=== PATIENT | female | born 1985 | race African-American/Black ===

== ENCOUNTER 2017-01-21 10:46 | Emergency (ER) | payer MEDICARE, OTHER ==
[~2017-01-21] VITALS: Ht 165.1 cm; Wt 85.1 kg
[~2017-01-21 10:46] MED LIST: ACET-704 PO; AMOX1TAB61 PO; BENZ100C PO; DEXA4TAB PO; FERR-36 PO; FLUT9.9S NS; GABA-586 PO; HYDR-2678 PO; LEVO500T59 PO; LEVO500T8 PO; LIDO20SO PO; LORA0.5T PO; MULT1CAP15 PO; NYST100054; ONDA8TAB14 PO; OXYC5TAB PO; VARE1TAB21 PO; magic mouth wash PO
[2017-01-21 11:05] VITALS: BP 112/76
[2017-01-21] MEDS ORDERED: LIDOCAINE 1% / SOD BICARB 8.4% 20 ML VIAL. IJ ONE (11:45)
[2017-01-21] MEDS ORDERED: SULF1TAB23 PO (12:08)
[2017-01-21] MEDS ORDERED: HYDR-971 PO (12:09)
--- NOTE | 2017-01-21 12:09 | PHYS DOC ---
Past Medical History Past Medical History: Cancer Additional Past Medical Histor: breast cancer with chemotherapy Past Surgical History: , Other Additional Past Surgical Histo: port insertion, L breast mastectomy and lymph nodes Alcohol Use: None Drug Use: None Adult General Chief Complaint Chief Complaint: ABSCESS HPI HPI Patient is a 31 year old female who presents with an abscess on the right inner buttock for 3 days. Patient denies any fever. Patient states the area has been draining since this morning. Review of Systems Review of Systems Constitutional: Denies fever or chills [] Musculoskeletal: Denies back pain or joint pain [] Integument: abscess on the right inner buttock Neurologic: Denies headache, focal weakness or sensory changes [] Endocrine: Denies polyuria or polydipsia [] Current Medications Current Medications Current Medications Medications (Trade) Dose Ordered Sig/Thaddeus Start Time Stop Time Status Last Admin Dose Admin Acetaminophen/ Hydrocodone Bitart (Lortab 5/325) 2 tab 1X ONCE 01/21/17 12:15 01/21/17 12:16 01/21/17 11:44 2 TAB Diphtheria/ Tetanus/Acell Pertussis (Boostrix) 0.5 ml ONCE ONCE 01/21/17 12:15 01/21/17 12:16 01/21/17 11:46 0.5 ML Lidocaine/Sodium Bicarbonate (Buffered Lidocaine 1%) 20 ml 1X ONCE 01/21/17 11:45 01/21/17 11:46 DC 01/21/17 11:47 20 ML Allergies Allergies Allergies Coded Allergies Type Severity Reaction Last Updated Verified No Known Drug Allergies 11/03/15 No Physical Exam Physical Exam Constitutional: Well developed, well nourished, no acute distress, non-toxic appearance. [] HENT: Normocephalic, atraumatic, bilateral external ears normal, oropharynx moist, no oral exudates, nose normal. [] Skin: Right inner buttock with an open wound approximately 0.5 x 0.5 cm. The area is draining yellow purulent material. There is trace erythema to the area. The area is warm and very tender to touch consistent with an abscess Back: No tenderness, no CVA tenderness. [] Extremities: No tenderness, no cyanosis, no clubbing, ROM intact, no edema. [] Neurologic: Alert and oriented X 3, normal motor function, normal sensory function, no focal deficits noted. [] Psychologic: Affect normal, judgement normal, mood normal. [] Current Patient Data Vital Signs Vital Signs Date Time Temp Pulse Resp B/P Pulse Ox O2 Delivery O2 Flow Rate FiO2 01/21/17 11:05 99.0 107 20 100 Room Air 99.0 EKG EKG [] Radiology/Procedures Radiology/Procedures Indication: abscess of the right inner thigh Procedure: The patient was positioned appropriately. Local anesthesia was not needed. Small amount of yellow bloody material was material was expressed. The drainage cavity was irrigated and covered with sterile gauze. The patients tetanus status updated as needed. The patient tolerated the procedure well. Complications: none.[] Course & Med Decision Making Course & Med Decision Making Pertinent Labs and Imaging studies reviewed. (See chart for details) Patient has an abscess of the right inner thigh which was drained in the ED as noted in procedures. Discharged on Bactrim. Tetanus was updated. Provided return precautions and discharged in stable condition. Dragon Disclaimer Dragon Disclaimer This electronic medical record was generated, in whole or in part, using a voice recognition dictation system. Departure Departure Impression: Primary Impression: Abscess of lower leg Disposition: HOME, SELF-CARE Condition: STABLE Referrals: ALTHEA BELTRE DO (PCP) Follow-up with your doctor in 1-2 weeks Patient Instructions: Abscess, [id number] Additional Instructions: You were seen for an abscess of the right inner thigh. Keep the area clean and dry. Keep it covered if it is draining. Complete your antibiotics. Follow-up with your doctor in 1- 2 weeks. Scripts Hydrocodone/Apap 5-325 (Jelm 5-325 Tablet)1 Each Tablet1-2 Tab PO Q4-6HRS #14 TAB Prov:WAGNER LUCIA APRN 01/21/17 Sulfamethoxazole/Trimethoprim (Bactrim 400-80 Mg Tablet)1 Each Tablet1 Tab PO BID #20 TAB Prov:WAGNER LUCIA APRN 01/21/17 WAGNER LUCIA APRN Jan 21, 2017 12:09
[2017-01-21] MEDS ORDERED: DIPHTH,PERTUSS(ACELL),TET TOX 0.5 ML DISP.SYRIN. VAX IM ONE (12:15)
[2017-01-21] MEDS ORDERED: HYDROcodone/APAP 5/325MG 1 TAB TABLET PO ONE (12:15)
== END 2017-01-21 12:15 | disposition home or self-care (01) ==
LOC: ER 10:46
DX: L02.415 Cutaneous abscess of right lower limb (principal)
CPT/HCPCS: 10060; 90471; 90715; 99283-25

== ENCOUNTER 2017-02-07 15:28 | Emergency (ER) | payer MEDICARE, OTHER ==
[~2017-02-07 15:28] MED LIST changes: -FERR-36 PO; +FERR325T31 PO; +HYDR-971 PO; +LEVO500T38 PO; -LEVO500T59 PO; +ONDA-36 PO; -ONDA8TAB14 PO; +SULF1TAB23 PO
[2017-02-07 15:43] VITALS: BP 121/80
[2017-02-07] MEDS: LIDOCAINE 2% VISCOUS 15 ML SOLUTION. SWSW ONE ×2 (16:28→16:37)
[2017-02-07] MEDS ORDERED: IBUPROFEN 800 MG TABLET. PO ONE (16:30)
--- NOTE | 2017-02-07 16:38 | PHYS DOC ---
Past Medical History Past Medical History: Cancer Additional Past Medical Histor: breast cancer with chemotherapy Past Surgical History: , Other Additional Past Surgical Histo: Bilateal Mastectomy Alcohol Use: None Drug Use: None Adult General Chief Complaint Chief Complaint: SORE THROAT [facility] HPI Patient is a 31 year old female presents emergency department stating that she has having a sore throat with swollen lymph nodes. She is here with her son who was sent home from school with questionable mumps. Parent believes that she may also have mumps. She denies any fever. She states that she's had a sore throat for the last few days she states that she's been taken Tylenol and ibuprofen for the pain and discomfort with no relief. She denies fevers at home. Continue with swallowing. She's had no change in her appetite. Review of Systems Review of Systems Constitutional: Denies fever or chills [] Eyes: Denies change in visual acuity, redness, or eye pain [] HENT: Denies nasal congestion C/o sore throat [] Respiratory: Denies cough or shortness of breath [] Cardiovascular: No additional information not addressed in HPI [] GI: Denies abdominal pain, nausea, vomiting, bloody stools or diarrhea [] : Denies dysuria or hematuria [] Musculoskeletal: Denies back pain or joint pain [] Integument: Denies rash or skin lesions [] Neurologic: Denies headache, focal weakness or sensory changes [] Current Medications Current Medications Current Medications Medications (Trade) Dose Ordered Sig/Thaddeus Start Time Stop Time Status Last Admin Dose Admin Ibuprofen (Motrin) 800 mg 1X ONCE 02/07/17 16:30 02/07/17 16:31 DC 02/07/17 16:28 800 MG Lidocaine HCl (Viscous Lidocaine) 15 ml 1X ONCE 02/07/17 16:45 02/07/17 16:46 Allergies Allergies Allergies Coded Allergies Type Severity Reaction Last Updated Verified No Known Drug Allergies 11/03/15 No Physical Exam Physical Exam Constitutional: Well developed, well nourished, no acute distress, non-toxic appearance. [] HENT: Normocephalic, atraumatic, bilateral external ears normal, oropharynx moist, no oral exudates, nose normal. Bilateral tympanic membranes appear to be normal. Throat appears to have enlarged tonsils with erythematous noted. No exudates noted. Noted to have slight left anterior cervical adenopathy noted. Eyes: PERRLA, EOMI, conjunctiva normal, no discharge. [] Neck: Normal range of motion, no tenderness, supple, no stridor. [] Cardiovascular:Heart rate regular rhythm, no murmur [] Lungs & Thorax: Bilateral breath sounds clear to auscultation [] Skin: Warm, dry, no erythema, no rash. [] Back: No tenderness Extremities: No tenderness, no cyanosis, no clubbing, ROM intact, no edema. [] Neurologic: Alert and oriented X 3, normal motor function, normal sensory function, no focal deficits noted. [] Psychologic: Affect normal, judgement normal, mood normal. [] Current Patient Data Vital Signs Vital Signs Date Time Temp Pulse Resp B/P Pulse Ox O2 Delivery O2 Flow Rate FiO2 02/07/17 15:43 99.3 106 16 99 Room Air 99.3 EKG EKG [] Radiology/Procedures Radiology/Procedures [] Course & Med Decision Making Course & Med Decision Making Pertinent Labs and Imaging studies reviewed. (See chart for details) Rapid strep was negative. Patient was provided with ibuprofen and viscous lidocaine in the here in the emergency department which patient refused stating that she has taken Tylenol and ibuprofen at home with no relief. She continues to state she has discussed lidocaine at home in which she has taken with no relief either. Patient will have blood obtained to rule out months. She was instructed that this results will not be back until at least Friday. Patient was recommended to use Tylenol and ibuprofen at home for fever chills generalized body aches and discomfort drink plenty of fluids to stay hydrated. She was instructed that this is a viral infection and is contagious and therefore needs to stay home. She will be discharged home in stable condition signs and symptoms to return back to emergency department as been provided. Patient agrees with discharge instructions treatment regimens and follow-up recommendations. [] Dragon Disclaimer Dragon Disclaimer This electronic medical record was generated, in whole or in part, using a voice recognition dictation system. Departure Departure Impression: Primary Impression: Pharyngitis Additional Impression: Viral infection Disposition: HOME, SELF-CARE Condition: STABLE Referrals: UNKNOWN PCP NAME (PCP) Patient Instructions: Viral Infections, [id number], Viral and Bacterial Pharyngitis, [id number] Additional Instructions: Home to rest. Tylenol or ibuprofen for fever chills generalized body aches and discomfort. No work until the results of the mumps testing have come back. This results should be back by Friday. We'll be notified if the results. Drink plenty of fluids such as water, Gatorade or propel to stay hydrated. No work until the results are back. Followup with your primary care provider in 5-7 days Return to emergency department as needed for signs and symptoms that become worse. Problem Qualifiers GENNARO GUERRA [employer] Feb 07, 2017 16:38
[2017-02-08 11:50] LABS: NEGATIVE OBC STREP NEG; POSITIVE OBC STREP POS
== END 2017-02-07 16:56 | disposition home or self-care (01) ==
LOC: ER 15:28
DX: J02.8 Acute pharyngitis due to other specified organisms (principal); B97.89 Other viral agents as the cause of diseases classified elsewhere
CPT/HCPCS: 36415; 86735; 87070; 87880; 99284

== ENCOUNTER 2017-03-19 17:36 | Emergency (ER) | payer MEDICARE, OTHER ==
[~2017-03-19 17:36] MED LIST changes: +FERR-36 PO; -FERR325T31 PO; -LEVO500T38 PO; +LEVO500T59 PO; -ONDA-36 PO; +ONDA8TAB14 PO
== END 2017-03-19 19:11 | disposition left against medical advice (07) ==
LOC: ER 17:36
DX: R07.89 Other chest pain (principal); Z53.21 Procedure and treatment not carried out due to patient leaving prior to being seen by health care provider

== ENCOUNTER → 2017-09-15 | Outpatient (CLI) | payer MEDICARE, OTHER ==
[2017-08-16 11:19] VITALS: BP 111/95
[~2017-09-15] MED LIST changes: +IOHEXOL 240 MG/ML 50ML VIAL. PO ONE; +IOHEXOL 300 MG/ML 100ML VIAL. IV ONE; -OXYC5TAB PO; +OXYC5TAB95 PO; +SULF1TAB24 PO
--- NOTE | 2017-09-15 10:37 | RAD ---
Examination: CT of the abdomen pelvis with chest abdomen and pelvis History: History of malignant neoplasm left breast, history of mastectomy Comparison: 07/23/2015 Technique: Axial CT images of the chest abdomen pelvis performed with IV contrast. Coronal and sagittal reformats are performed. PQRS Compliance Statement: One or more of the following individualized dose reduction techniques were utilized for this examination: 1. Automated exposure control 2. Adjustment of the mA and/or kV according to patient size 3. Use of iterative reconstruction technique Findings: The visualized right lobe of the thyroid gland grossly appears unremarkable. The central airways are patent. The heart size grossly appears unremarkable. No evidence of pericardial effusion. Small subcentimeter mediastinal lymph node measuring 7 mm. The central airways are patent. The bilateral lungs are clear. The visualized liver, spleen, adrenals grossly appears unremarkable. The gallbladder is mildly distended. The stomach is mildly distended. The junction of the body and tail of the pancreas appears somewhat mildly prominent probably physiological. The small bowel is nondilated. The appendix is not clearly identified due to mild motion artifact from breathing motion. There is a cystic structure identified in the left ovary measuring 2.1 cm could be a cyst or follicle. Small amount of free fluid identified in the pelvis. The urinary bladder is mildly distended.. The bilateral kidneys enhance symmetrically. Mild degenerative changes identified in the visualized thoracolumbar spine. Impression: 1. No obvious evidence of metastatic disease. 2. The junction of the body and tail of the pancreas appears somewhat mildly prominent probably physiological. 3. Small amount of free fluid identified in the pelvis, nonspecific. 4. 2.1 cm cyst is identified in the left ovary could be a left ovarian cyst or follicle.
--- NOTE | 2017-09-15 13:08 | RAD ---
Radionuclide bone scan, 09/15/2017: History: Breast cancer Whole body imaging was performed following IV injection of 25 mCi of technetium 99m MDP. No previous bone scan is available at this time for comparison purposes. Activity of the radionuclide about the skeleton major joints is symmetric. There is mildly increased activity at both shoulders compatible with arthritis. Normal renal and bladder activity is evident. IMPRESSION: No bone scan evidence of osseous metastatic disease.
== END | disposition home or self-care (01) ==
LOC: NM 07:48
PROVIDERS: ATTEND Internal Medicine Hematology & Oncology
DX: C50.412 Malignant neoplasm of upper-outer quadrant of left female breast (principal); K82.8 Other specified diseases of gallbladder; K31.89 Other diseases of stomach and duodenum; N32.89 Other specified disorders of bladder; Z17.1 Estrogen receptor negative status [ER-]; Z90.12 Acquired absence of left breast and nipple
CPT/HCPCS: 71260; 74177; 78306; 96374; A9503; Q9966; Q9967

== ENCOUNTER 2017-09-24 08:48 | Emergency (ER) | payer MEDICARE, OTHER ==
[~2017-09-24] VITALS: Ht 165.1 cm; Wt 82.6 kg
[~2017-09-24 08:48] MED LIST changes: -IOHEXOL 240 MG/ML 50ML VIAL. PO ONE; -IOHEXOL 300 MG/ML 100ML VIAL. IV ONE
[2017-09-24 08:59] VITALS: BP 127/80
[2017-09-24] MEDS ORDERED: NAPR500T4 PO (09:46)
[2017-09-24] MEDS ORDERED: HYDR-971 PO (09:46)
--- NOTE | 2017-09-24 09:47 | PHYS DOC ---
Past Medical History Past Medical History: Cancer Additional Past Medical Histor: breast cancer with chemotherapy, OVARIAN CYST Past Surgical History: , Other Additional Past Surgical Histo: Bilateral Mastectomy Alcohol Use: Occasionally Drug Use: None Adult General Chief Complaint Chief Complaint: PAIN CONTROL [facility] HPI Patient is a 31-year-old Female with history of breast cancer and treated who presents today complaining of left pelvic pain, that has been going on 3-4 days. Patient states she was seen by the oncologist who did a CT scan of her abdomen and pelvic which was noted for left ovarian cyst. She states she is going to follow-up with her own [employer] RE[employer] OPERATOR. She is in the ED today requesting some pain management. She states she has a pelvic ultrasound scheduled on September then she'll see the REEL AND REWINDER OPERATOR. Patient denies any chance she is . Denies any fever. Patient denies any chance she is . Denies any unusual vaginal discharge. Review of Systems Review of Systems Constitutional: Denies fever or chills [] Eyes: Denies change in visual acuity, redness, or eye pain [] HENT: Denies nasal congestion or sore throat [] Respiratory: Denies cough or shortness of breath [] Cardiovascular: No additional information not addressed in HPI [] GI: Left pelvic pain. Denies nausea, vomiting, bloody stools or diarrhea [] : Denies dysuria or hematuria [] Musculoskeletal: Denies back pain or joint pain [] Integument: Denies rash or skin lesions [] Neurologic: Denies headache, focal weakness or sensory changes [] All other systems were reviewed and found to be within normal limits, except as documented in this note. Allergies Allergies Allergies Coded Allergies Type Severity Reaction Last Updated Verified No Known Drug Allergies 11/03/15 No Physical Exam Physical Exam Constitutional: Well developed, well nourished, no acute distress, non-toxic appearance. [] HENT: Normocephalic, atraumatic, bilateral external ears normal, oropharynx moist, no oral exudates, nose normal. [] Eyes: PERRLA, EOMI, conjunctiva normal, no discharge. [] Neck: Normal range of motion, no tenderness, supple, no stridor. [] Cardiovascular:Heart rate regular rhythm, no murmur [] Lungs & Thorax: Bilateral breath sounds clear to auscultation [] Abdomen: Bowel sounds normal, soft, tenderness to the left pelvic region, no masses, no pulsatile masses. [] Skin: Warm, dry, no erythema, no rash. [] Back: No tenderness, no CVA tenderness. [] Extremities: No tenderness, no cyanosis, no clubbing, ROM intact, no edema. [] Neurologic: Alert and oriented X 3, normal motor function, normal sensory function, no focal deficits noted. [] Psychologic: Affect normal, judgement normal, mood normal. [] Current Patient Data Vital Signs Vital Signs Date Time Temp Pulse Resp B/P (MAP) Pulse Ox O2 Delivery O2 Flow Rate FiO2 09/24/17 08:59 98.9 86 18 100 Room Air 98.9 EKG EKG [] Radiology/Procedures Radiology/Procedures [] Course & Med Decision Making Course & Med Decision Making Pertinent Labs and Imaging studies reviewed. (See chart for details) Patient is in the ED for left pelvic pain. She was diagnosed with a left ovarian cyst a couple days ago and has an ultrasound scheduled on September 29, 2017 then after she can see her RE[employer] AND REWINDER OPERATOR. She has history of breast cancer. She was d/C with pain medicines and F/u with OBGYN. Dragon Disclaimer Dragon Disclaimer This electronic medical record was generated, in whole or in part, using a voice recognition dictation system. Departure Departure Impression: Primary Impression: Left ovarian cyst Disposition: 01 HOME, SELF-CARE Condition: STABLE Referrals: ALTHEA BELTRE DO (PCP) BHANU HU MD follow up as soon as possible Patient Instructions: Abdominal Pain Additional Instructions: You were seen for left pelvic pain due to left ovarian cyst. We highly recommend you contact your RE[employer] AND REWINDER OPERATOR and set up a follow-up appointment Slightly Do not drive or operate machinery on pain medicines Scripts Naproxen (NAPROXEN) 500 Mg Tablet 1 TAB PO BID, #30 TAB 0 Refills Prov: WAGNER LUCIA APRN 09/24/17 Hydrocodone/Apap 5-325 (NORCO 5-325 TABLET) 1 Each Tablet 1 TAB PO Q4-6HRS Y for PAIN, #20 TAB Prov: WAGNER LUCIA APRN 09/24/17 WAGNER LUCIA APRN Sep 24, 2017 09:47
== END 2017-09-24 10:01 | disposition home or self-care (01) ==
LOC: ER 08:48
DX: N83.202 Unspecified ovarian cyst, left side (principal); Z90.13 Acquired absence of bilateral breasts and nipples
CPT/HCPCS: 99283

== ENCOUNTER → 2017-09-29 | Outpatient (CLI) | payer MEDICARE, OTHER ==
[2017-09-24 08:59] VITALS: BP 127/80
[~2017-09-29] MED LIST changes: +NAPR500T4 PO
--- NOTE | 2017-09-29 16:31 | RAD ---
Ultrasound pelvis Indication: Evaluation of left ovarian cysts renal pelvis. History of breast cancer Technique: Grayscale, color Doppler and spectral waveform ultrasound images of the pelvis. Comparison: CT from 09/15/2017 Findings: The uterus measures 11.2 x 4.0 x 5.5 cm (longitudinal, AP, transverse.) The endometrium measures 2 mm and is within normal limits. The left ovary measures 2.6 x 1.7 x 3.0 cm with a 2.1 x 1.7 x 1.8 cm anechoic cyst with single thin septation with posterior acoustic enhancement and without mural nodularity. The left ovary demonstrates evidence of blood flow. The right ovary measures 1.5 x 1.4 x 2.0 cm and demonstrates evidence of blood flow. No free fluid in the pelvis. Cervix within normal limits. Impression: Simple appearing left ovarian cyst with single septation without worrisome features. Follow-up ultrasound in 6 months recommended.
== END | disposition home or self-care (01) ==
LOC: US 14:02
PROVIDERS: ATTEND Internal Medicine Hematology & Oncology
DX: N83.292 Other ovarian cyst, left side (principal); Z85.3 Personal history of malignant neoplasm of breast
CPT/HCPCS: 76830; 76856

== ENCOUNTER 2017-10-13 14:38 | Emergency (ER) | payer MEDICARE, OTHER | END 2017-10-13 15:32 | disposition home or self-care (01) | LOC: ER 14:38 | DX: L02.411 Cutaneous abscess of right axilla (principal) | CPT/HCPCS: 99283 ==

== ENCOUNTER 2017-11-18 07:59 | Emergency (ER) | payer MEDICARE, OTHER | END 2017-11-18 08:27 | disposition home or self-care (01) | LOC: ER 07:59 | DX: J02.9 Acute pharyngitis, unspecified (principal); F17.210 Nicotine dependence, cigarettes, uncomplicated | CPT/HCPCS: 99283 ==

== ENCOUNTER 2018-05-29 10:20 | Emergency (ER) | payer MEDICARE, OTHER ==
[~2018-05-29] VITALS: Ht 165.1 cm; Wt 81.6 kg
[~2018-05-29 10:20] MED LIST changes: +NAPR-514 PO; -NAPR500T4 PO; +PRED-220 PO
--- NOTE | 2018-05-29 10:41 | PHYS DOC ---
Past Medical History Past Medical History: Cancer, Other Additional Past Medical Histor: breast cancer- chemotherapy, ovarian cyst, cervical cancer Past Surgical History: , Other Additional Past Surgical Histo: bilat mastectomy Alcohol Use: None Drug Use: None Adult General Chief Complaint Chief Complaint: ABDOMINAL PAIN HPI HPI Patient is a 32 year old female with a history of breast cancer, treated, who presents today complaining of left ovarian pain. Patient rates the pain is 10 out of 10, she states the pain has been going on for a while. 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 Forrester OBGYN . She states she has an appointment with Dr. Forrester the SENIOR FINANCIAL REPORTING ANALYST in 2 weeks. She states she cannot wait until then, she states she called Dr. Forrester's office and they requested her to come to the emergency room to be evaluated. She is also complaining of cough and nasal congestion for a couple days. Denies any fever. Review of Systems Review of Systems Constitutional: Denies fever or chills [] Eyes: Denies change in visual acuity, redness, or eye pain [] HENT: Reports nasal congestion, denies sore throat [] Respiratory: Reports cough, denies shortness of breath [] Cardiovascular: No additional information not addressed in HPI [] GI: Reports left ovary pain, denies nausea, vomiting, bloody stools or diarrhea [] : Denies dysuria or hematuria [] Musculoskeletal: Denies back pain or joint pain [] Integument: Denies rash or skin lesions [] Neurologic: Denies headache, focal weakness or sensory changes [] All other systems were reviewed and found to be within normal limits, except as documented in this note. Current Medications Current Medications Current Medications Medications (Trade) Dose Ordered Sig/Thaddeus Start Time Stop Time Status Last Admin Dose Admin Oxycodone/ Acetaminophen (Percocet 5/325) 1 tab 1X ONCE 05/29/18 11:00 05/29/18 11:01 DC 05/29/18 11:02 1 TAB Allergies Allergies Allergies Coded Allergies Type Severity Reaction Last Updated Verified No Known Drug Allergies 11/03/15 No Physical Exam Physical Exam Constitutional: Well developed, well nourished, no acute distress, non-toxic appearance. [] HENT: Normocephalic, atraumatic, bilateral external ears normal, oropharynx moist, no oral exudates, nose normal. [] Eyes: PERRLA, EOMI, conjunctiva normal, no discharge. [] Neck: Normal range of motion, no tenderness, supple, no stridor. [] Cardiovascular:Heart rate regular rhythm, no murmur [] Lungs & Thorax: Bilateral breath sounds clear to auscultation [] Abdomen: Bowel sounds normal, soft, no tenderness, no masses, no pulsatile masses. [] Skin: Warm, dry, no erythema, no rash. [] Back: No tenderness, no CVA tenderness. [] Extremities: No tenderness, no cyanosis, no clubbing, ROM intact, no edema. [] Neurologic: Alert and oriented X 3, normal motor function, normal sensory function, no focal deficits noted. [] Psychologic: Affect normal, judgement normal, mood normal. [] Current Patient Data Vital Signs Vital Signs Date Time Temp Pulse Resp B/P (MAP) Pulse Ox O2 Delivery O2 Flow Rate FiO2 05/29/18 12:00 81 18 106/69 (81) 100 05/29/18 11:02 Room Air 05/29/18 10:31 98.5 98.5 Lab Values Laboratory Tests Test 05/29/18 10:56 05/29/18 10:57 Urine Collection Type Unknown Urine Color Yellow Urine Clarity Clear Urine pH 6.0 Urine Specific [place] 1.015 Urine Protein Negative mg/dL (NEG-TRACE) Urine Glucose (UA) Negative mg/dL (NEG) Urine Ketones (Stick) Negative mg/dL (NEG) Urine Blood Trace (NEG) Urine Nitrite Negative (NEG) Urine Bilirubin Negative (NEG) Urine Urobilinogen Dipstick 0.2 mg/dL (0.2 mg/dL) Urine Leukocyte Esterase Negative (NEG) Urine RBC Occ /HPF (0-2) Urine WBC 1-4 /HPF (0-4) Urine Squamous Epithelial Cells Mod /LPF Urine Bacteria Few /HPF (0-FEW) POC Urine HCG, Qualitative Hcg negative (Negative) EKG EKG [] Radiology/Procedures Radiology/Procedures []PROCEDURE: CHEST AP ONLY Single view of the chest. 05/29/2018 10:57 AM Indication: COUGH, CONGESTION Comparison: 2 views of the chest October 02, 2015 Findings: There is no focal consolidation. There is no pleural effusion or pneumothorax. The cardiomediastinal silhouette and pulmonary vasculature are within normal limits. No acute osseous abnormalities are seen. Bilateral mastectomy noted. Surgical clips scattered along the anterior chest. Impression: No evidence of acute cardiopulmonary process. Electronically signed by: Vic Tamayo MD (05/29/2018 11:05 AM) [facility] DICTATED and SIGNED BY: VIC TAMAYO MD DATE: 05/29/18 1103 Course & Med Decision Making Course & Med Decision Making Pertinent Labs and Imaging studies reviewed. (See chart for details) This is a 32-year-old female patient with history of breast cancer currently diagnosed with left ovarian cancer not started treatment too presents today complaining of left pelvic pain that has been going on for a while, has an appointment with the SENIOR FINANCIAL REPORTING ANALYST in 2 weeks. Could not wait until then. Also complaining of cough and nasal congestion. Chest x-ray interpreted by radiologist is negative for any acute findings, UA is negative. Patient's cough and congestion is likely an upper respiratory infection. Considering her pain, cough, and history of breast cancer and currently ovarian cancer, she was discharged with Tussionex cover her for pain and the cough. I recommended she follows up with the SENIOR FINANCIAL REPORTING ANALYST or Dr. Peterson in the next 7 days. She was provided return precautions and discharged in stable condition. Dragon Disclaimer Dragon Disclaimer This electronic medical record was generated, in whole or in part, using a voice recognition dictation system. Departure Departure Impression: Primary Impression: Upper respiratory infection Additional Impressions: Cough Pelvic pain Disposition: 01 HOME, SELF-CARE Condition: STABLE Referrals: ALTHEA BELTRE DO (PCP) follow up with your primary care doctor, Dr. Forrester and Dr. Peterson as soon as you can Patient Instructions: Cough, Adult, Pelvic Pain, Female, Upper Respiratory Infection, Adult, [id number] Additional Instructions: You were evaluated in the emergency room for left ovarian pain/pelvic pain, we highly recommend you continue following up with Dr. Forrester as well as Dr. Peterson. Your chest x-ray was negative, your cough and congestion are probably upper respiratory infection which is usually viral. We wrote you some medicines to help you with the cough as well as pain. Scripts Hydrocodone/Apap 5-325 (NORCO 5-325 TABLET) 1 Each Tablet 1 TAB PO Q6HRS, #3 TAB Prov: MUTUNGA,WAGNER MEDICAL SAFETY DIRECTOR 05/29/18 Hydrocodone/Chlorphen Polis (HYDROCODONE-CHLORPHENIRAM SUSP) 5 Ml Jossy.er.12h 5 ML PO PRN Q12HR PRN for COUGH, #80 ML 0 Refills Prov: WAGNER LUCIA APRN 05/29/18 Problem Qualifiers Primary Impression: Upper respiratory infection URI type: unspecified URI Qualified Codes: J06.9 - Acute upper respiratory infection, unspecified WAGNER LUCIA APRN May 29, 2018 10:41
[2018-05-29] MEDS ORDERED: oxyCODONE/APAP 5/325 1 TAB TABLET PO ONE (11:00)
--- NOTE | 2018-05-29 11:09 | RAD ---
Single view of the chest. 05/29/2018 10:57 AM Indication: COUGH, CONGESTION Comparison: 2 views of the chest October 02, 2015 Findings: There is no focal consolidation. There is no pleural effusion or pneumothorax. The cardiomediastinal silhouette and pulmonary vasculature are within normal limits. No acute osseous abnormalities are seen. Bilateral mastectomy noted. Surgical clips scattered along the anterior chest. Impression: No evidence of acute cardiopulmonary process. Electronically signed by: Vic Fox MD (05/29/2018 11:05 AM) [facility]
[2018-05-29 11:34] LABS: BILIRUBIN,URINE NEGATIVE (NEG); CLARITY,URINE CLEAR; COLOR,URINE YELLOW; NITRITE,URINE NEGATIVE (NEG); PROTEIN,URINE NEGATIVE (NEG-TRACE); RBC,URINE OCC /HPF (0-2); UROBILINOGEN,URINE 0.2 mg/dL (0.2 mg/dL)
[2018-05-29 11:35] LABS: BACTERIA,URINE FEW /HPF (0-FEW); SQUAMOUS EPITHELIAL CELL,UR MOD /LPF
[2018-05-29] MEDS ORDERED: HYDR5SUS PO (11:47)
[2018-05-29 12:00] VITALS: BP 106/69
[2018-05-29] MEDS ORDERED: HYDR-971 PO (12:46)
== END 2018-05-29 12:07 | disposition home or self-care (01) ==
LOC: ER 10:20
DX: J06.9 Acute upper respiratory infection, unspecified (principal); R10.2 Pelvic and perineal pain; C56.2 Malignant neoplasm of left ovary; Z90.13 Acquired absence of bilateral breasts and nipples
CPT/HCPCS: 71045; 81001; 81025; 99285

== ENCOUNTER 2018-07-06 10:48 | Emergency (ER) | payer MEDICARE, OTHER ==
[~2018-07-06] VITALS: Ht 165.1 cm; Wt 80.3 kg
[~2018-07-06 10:48] MED LIST changes: +HYDR5SUS PO
[2018-07-06 10:59] VITALS: BP 166/80
[2018-07-06] MEDS ORDERED: MORPHINE SULFATE 10 MG/ML VIAL. IM ONE (11:15)
[2018-07-06 11:19] LABS: BILIRUBIN,URINE NEGATIVE (NEG); CLARITY,URINE CLOUDY; COLOR,URINE AMBER; NITRITE,URINE NEGATIVE (NEG); PH,URINE 6.5; PROTEIN,URINE NEGATIVE (NEG-TRACE)
[2018-07-06 11:24] LABS: SQUAMOUS EPITHELIAL CELL,UR MANY /LPF
[2018-07-06 11:25] LABS: BACTERIA,URINE FEW /HPF (0-FEW); RBC,URINE 0 /HPF (0-2)
[2018-07-06] MEDS ORDERED: HYDROcodone/APAP 5/325MG 1 TAB TABLET PO ONE (11:45)
[2018-07-06] MEDS ORDERED: HYDR-971 PO (11:54)
--- NOTE | 2018-07-06 11:54 | PHYS DOC ---
Past Medical History Past Medical History: Cancer, Other Additional Past Medical Histor: breast cancer- chemotherapy, ovarian cyst, cervical cancer, Past Surgical History: , Other Additional Past Surgical Histo: bilat mastectomy Alcohol Use: None Drug Use: None Adult General Chief Complaint Chief Complaint: ABDOMINAL PAIN HPI HPI Patient is a 32 year old female with history of breast cancer and treated who presents today complaining of chronic 9 out of 10 left pelvic pain due to an ovarian cyst that she's had for a while. Patient states she is scheduled to have surgery to remove the cyst and ovary in 2 weeks. She states she is not able to see her MANAGER INTENSIVE CARE until her surgery is done in 2 weeks. She states she currently would like something to help with the pain. She has tried over-the- counter pain relievers with no relief. MANAGER INTENSIVE CARE Dr. Gonzalez was Review of Systems Review of Systems Constitutional: Denies fever or chills [] Eyes: Denies change in visual acuity, redness, or eye pain [] HENT: Denies nasal congestion or sore throat [] Respiratory: Denies cough or shortness of breath [] Cardiovascular: No additional information not addressed in HPI [] GI: Reports left pelvic pain-chronic, denies nausea, vomiting, bloody stools or diarrhea [] : Denies dysuria or hematuria [] Musculoskeletal: Denies back pain or joint pain [] Integument: Denies rash or skin lesions [] Neurologic: Denies headache, focal weakness or sensory changes [] All other systems were reviewed and found to be within normal limits, except as documented in this note. Current Medications Current Medications Current Medications Medications (Trade) Dose Ordered Sig/Thaddeus Start Time Stop Time Status Last Admin Dose Admin Acetaminophen/ Hydrocodone Bitart (Lortab 5/325) 2 tab 1X ONCE 07/06/18 11:45 07/06/18 11:46 DC 07/06/18 11:59 2 TAB Morphine Sulfate (Morphine Sulfate) 5 mg 1X ONCE 07/06/18 11:15 07/06/18 11:40 DC Allergies Allergies Allergies Coded Allergies Type Severity Reaction Last Updated Verified No Known Drug Allergies 11/03/15 No Physical Exam Physical Exam Constitutional: Well developed, well nourished, no acute distress, non-toxic appearance. [] HENT: Normocephalic, atraumatic, bilateral external ears normal, oropharynx moist, no oral exudates, nose normal. [] Eyes: PERRLA, EOMI, conjunctiva normal, no discharge. [] Neck: Normal range of motion, no tenderness, supple, no stridor. [] Cardiovascular:Heart rate regular rhythm, no murmur [] Lungs & Thorax: Bilateral breath sounds clear to auscultation [] Abdomen: Bowel sounds normal, soft, no tenderness, no masses, no pulsatile masses. [] Skin: Warm, dry, no erythema, no rash. [] Back: No tenderness, no CVA tenderness. [] Extremities: No tenderness, no cyanosis, no clubbing, ROM intact, no edema. [] Neurologic: Alert and oriented X 3, normal motor function, normal sensory function, no focal deficits noted. [] Psychologic: Affect normal, judgement normal, mood normal. [] Current Patient Data Vital Signs Vital Signs Date Time Temp Pulse Resp B/P (MAP) Pulse Ox O2 Delivery O2 Flow Rate FiO2 07/06/18 11:59 18 Room Air 07/06/18 10:59 99.0 85 166/80 (108) 100 99.0 Lab Values Laboratory Tests Test 07/06/18 10:55 07/06/18 11:11 Urine Collection Type Unknown Urine Color Mitzy Urine Clarity Cloudy Urine pH 6.5 Urine Specific [place] >=1.030 Urine Protein Negative mg/dL (NEG-TRACE) Urine Glucose (UA) Negative mg/dL (NEG) Urine Ketones (Stick) Trace mg/dL (NEG) Urine Blood Negative (NEG) Urine Nitrite Negative (NEG) Urine Bilirubin Negative (NEG) Urine Urobilinogen Dipstick 1.0 mg/dL (0.2 mg/dL) Urine Leukocyte Esterase Negative (NEG) Urine RBC 0 /HPF (0-2) Urine WBC 1-4 /HPF (0-4) Urine Squamous Epithelial Cells Many /LPF Urine Bacteria Few /HPF (0-FEW) Urine Mucus Marked /LPF POC Urine HCG, Qualitative Hcg negative (Negative) EKG EKG [] Radiology/Procedures Radiology/Procedures [] Course & Med Decision Making Course & Med Decision Making Pertinent Labs and Imaging studies reviewed. (See chart for details) This is a 32-year-old female patient presenting to the ED today with chronic pelvic pain from an ovarian cyst, per her statement she is scheduled to have oophorectomy in 2 weeks. She states she is not able to see her MANAGER INTENSIVE CARE until then. We will send her home with 10 tablets of [place] to use wisely for the next 2 weeks. UA is negative. Staff Physician Addendum: I was working in the ER during the course of this patient's visit. I was available for consultation as needed, but I was not directly involved in the care of this patient. Dragon Disclaimer Dragon Disclaimer This electronic medical record was generated, in whole or in part, using a voice recognition dictation system. Departure Departure Impression: Primary Impression: Chronic pelvic pain in female Disposition: HOME, SELF-CARE Condition: STABLE Referrals: ALTHEA BELTRE DO (PCP) BHANU HU MD follow up as soon as you can Patient Instructions: Pelvic Pain, Female, [id number] Additional Instructions: You were seen for chronic left pelvic pain. Please follow-up with your MANAGER INTENSIVE CARE as soon as you can. Scripts Hydrocodone/Apap 5-325 (NORCO 5-325 TABLET) 1 Each Tablet 1 TAB PO Q6HRS, #10 TAB Prov: WAGNER LUCIA APRN 07/06/18 WAGNER LUCIA APRN Jul 06, 2018 11:54 ZULEYKA ONOFRE MD Jul 06, 2018 16:12
== END 2018-07-06 12:06 | disposition home or self-care (01) ==
LOC: ER 10:48
DX: G89.29 Other chronic pain (principal); R10.2 Pelvic and perineal pain
CPT/HCPCS: 81001; 81025; 99283

== ENCOUNTER 2019-04-20 13:53 | Emergency (ER) | payer OTHER ==
[~2019-04-20] VITALS: Ht 165.1 cm; Wt 79.4 kg
[~2019-04-20 13:53] MED LIST changes: -GABA-586 PO; +GABA300C18 PO; +HYDR-3164 PO; -HYDR-971 PO; +OXYC5TAB4 PO; -OXYC5TAB95 PO
[2019-04-20 14:20] VITALS: BP 126/80
--- NOTE | 2019-04-20 15:03 | PHYS DOC ---
Past Medical History Past Medical History: Cancer, Depression, Other Additional Past Medical Histor: breast cancer- chemotherapy, ovarian cyst, cervical cancer, Past Surgical History: , Other Additional Past Surgical Histo: bilat mastectomy Alcohol Use: None Drug Use: None Adult General Chief Complaint Chief Complaint: MULTIPLE COMPLAINTS [facility] HPI Patient is a 33 year old AA female who presents to the ER with complaints of left breast lump that is painful for the last 2 weeks and pelvic pain for over 6 months. She has a hx of breast cancer in 2016 and has had a bilateral mastectomy. Her oncologist is Dr. Peterson and her OBGyn is Dr. Lisa Forrester. Pt states she was supposed to have a scan of her abdomen done 6 months ago but never had it completed because she didn't have time. She denies any increase in pelvic discomfort, irregular vaginal discharge, fever, nausea, vomiting, diarrhea, abdominal pain, constipation, shortness of breath, cough, dysuria, or back pain. She is requesting pain medication and rates her pain a 10/10 on the pain scale, she denies any alleviating factors. Review of Systems Review of Systems Constitutional: Denies fever or chills [] Eyes: Denies change in visual acuity, redness, or eye pain [] HENT: Denies nasal congestion or sore throat [] Respiratory: Denies cough or shortness of breath; reports tender lump on left chest without erythema, warmth, or drainage x2 weeks [] Cardiovascular: No additional information not addressed in HPI [] GI: Denies abdominal pain, nausea, vomiting, bloody stools or diarrhea; reports chronic pelvic pain [] : Denies dysuria or hematuria see HPI[] Musculoskeletal: Denies back pain or joint pain [] Integument: Denies rash or skin lesions [] Neurologic: Denies headache, focal weakness or sensory changes [] Complete systems were reviewed and found to be within normal limits, except as documented in this note. Current Medications Current Medications Current Medications Medications (Trade) Dose Ordered Sig/Thaddeus Start Time Stop Time Status Last Admin Dose Admin Acetaminophen/ Hydrocodone Bitart (Lortab 5/325) 1 tab 1X ONCE 04/20/19 15:30 04/20/19 15:31 DC Allergies Allergies Allergies Coded Allergies Type Severity Reaction Last Updated Verified No Known Drug Allergies 11/03/15 No Physical Exam Physical Exam Constitutional: Well developed, well nourished, no acute distress, non-toxic appearance, drug seeking behavior. [] HENT: Normocephalic, atraumatic, bilateral external ears normal, nose normal. [] Eyes: PERRLA, conjunctiva normal, no discharge. [] Neck: Normal range of motion, no stridor. [] Cardiovascular:Heart rate regular rhythm, Lungs & Thorax: Bilateral breath sounds clear to auscultation; palpable, smooth, round, moveable, tender area to left chest; bilateral post-operative mastectomy changes [] Abdomen: Bowel sounds normal, soft, no tenderness, no masses, no pulsatile masses. [] Skin: Warm, dry, no erythema, no rash. [] Extremities: No cyanosis,ROM intact, no edema. [] Neurologic: Alert and oriented X 3, no focal deficits noted. [] Psychologic: Affect normal, judgement normal, mood normal. [] Current Patient Data Vital Signs Vital Signs Date Time Temp Pulse Resp B/P (MAP) Pulse Ox O2 Delivery O2 Flow Rate FiO2 04/20/19 14:20 98.4 92 14 126/80 (95) 100 Room Air 98.4 Lab Values Laboratory Tests Test 04/20/19 15:20 Urine Color Yellow Urine Clarity Clear Urine pH 5.5 Urine Specific [place] 1.025 Urine Protein Negative mg/dL (NEG-TRACE) Urine Glucose (UA) Negative mg/dL (NEG) Urine Ketones (Stick) Negative mg/dL (NEG) Urine Blood Trace (NEG) Urine Nitrite Positive (NEG) Urine Bilirubin Negative (NEG) Urine Urobilinogen Dipstick 0.2 mg/dL (0.2 mg/dL) Urine Leukocyte Esterase Small (NEG) Urine RBC Occ /HPF (0-2) Urine WBC 1-4 /HPF (0-4) Urine Squamous Epithelial Cells Occ /LPF Urine Bacteria Many /HPF (0-FEW) EKG EKG [] Radiology/Procedures Radiology/Procedures [] Course & Med Decision Making Course & Med Decision Making Pertinent Labs and Imaging studies reviewed. (See chart for details) Dx: AMA, drug seeking behavior Discussed need for follow up with Dr. Peterson oncologist and Dr. Forrester judicial reporter for further evaluation of chronic pelvic pain and tender lump in chest. Advised pt that one hydrocodone would be ordered in the ER. Will check urine for UTI and . Pt agreeable with plan. Jelena RN notified this provider that patient chose to sign out AMA before UA resulted and any pain medication was given. [] Dragon Disclaimer Dragon Disclaimer This electronic medical record was generated, in whole or in part, using a voice recognition dictation system. Departure Departure Impression: Primary Impression: Drug-seeking behavior Additional Impression: Left against medical advice Disposition: 07 AGAINST MEDICAL ADVICE Condition: STABLE Referrals: ALTHEA BELTRE DO (PCP) Problem Qualifiers JAZMIN JIANG MOTOR AND GENERATOR BRUSH CUTTER Apr 20, 2019 15:03
[2019-04-20] MEDS ORDERED: HYDROcodone/APAP 5/325MG 1 TAB TABLET PO ONE (15:30)
[2019-04-20 15:46] LABS: BILIRUBIN,URINE NEGATIVE (NEG); CLARITY,URINE CLEAR; COLOR,URINE YELLOW; NITRITE,URINE POSITIVE (NEG); PH,URINE 5.5; PROTEIN,URINE NEGATIVE (NEG-TRACE); UROBILINOGEN,URINE 0.2 mg/dL (0.2 mg/dL)
[2019-04-20 16:50] LABS: BACTERIA,URINE MANY /HPF (0-FEW); RBC,URINE OCC /HPF (0-2); SQUAMOUS EPITHELIAL CELL,UR OCC /LPF
== END 2019-04-20 15:30 | disposition left against medical advice (07) ==
LOC: ER 13:53
DX: Z76.5 Malingerer [conscious simulation] (principal); N63.20 Unspecified lump in the left breast, unspecified quadrant; G89.29 Other chronic pain; R10.2 Pelvic and perineal pain; Z90.13 Acquired absence of bilateral breasts and nipples; Z85.43 Personal history of malignant neoplasm of ovary; Z85.89 Personal history of malignant neoplasm of other organs and systems
CPT/HCPCS: 81001; 87086; 99284

== ENCOUNTER → 2019-05-06 | Outpatient (CLI) | payer OTHER ==
[2019-04-20 14:20] VITALS: BP 126/80
[~2019-05-06] MED LIST changes: +CONTRAST GIVEN. MC PRN; +IOHEXOL 240 MG/ML 50ML VIAL. PO ONE; +IOHEXOL 300 MG/ML 100ML VIAL. IV ONE
--- NOTE | 2019-05-06 10:59 | RAD ---
EXAM: CT Chest, Abdomen and Pelvis with IV contrast CLINICAL HISTORY: Left breast cancer COMPARISON: None. TECHNIQUE: Helical CT of the chest, abdomen and pelvis was performed following the administration of intravenous contrast. Axial, coronal and sagittal reformatted images were generated. ---PQRS compliance statement - One or more of the following individualized dose reduction techniques were utilized for this study: 1. Automated exposure control 2. Adjustment of the mA and/or kV according to patient size 3. Use of iterative reconstruction technique--- FINDINGS: Chest: Heart is not enlarged. No pericardial effusion. No mediastinal or hilar lymphadenopathy by size criteria. No axillary lymphadenopathy. Bilateral anterior chest wall and axillary surgical clips are seen from prior meniscectomy. No suspicious lung nodule or mass is seen. No lobar consolidation. No pleural effusion or pneumothorax. Abdomen and Pelvis: No focal liver lesion. Spleen is unremarkable. Adrenal glands are normal. Pancreas is unremarkable. Mild gallbladder wall thickening and edema with internal punctate radiodense foci with trace suspected pericholecystic fluid may be seen with cholecystitis. Symmetric nephrograms. Subcentimeter hypodense right upper pole renal lesion is too small to accurately characterize. No hydronephrosis or hydroureter. Bladder is unremarkable. Uterus and adnexa are unremarkable. No abdominal or pelvic lymphadenopathy. No abdominal or pelvic ascites. Visualized osseous structures are unremarkable. Bones: Osseous structures are grossly stable. IMPRESSION: 1. No thoracic, abdominal or pelvic lymphadenopathy. No evidence for metastatic disease. 2. Gallstones and sludge are seen within the gallbladder with wall thickening and trace pericholecystic fluid which may be seen with cholecystitis. This can be correlated with patient's symptoms and lab values and if further imaging is required, ultrasound or HIDA scan would provide additional details. Electronically signed by: Xavi May MD (05/06/2019 10:56 AM) [facility]
--- NOTE | 2019-05-06 11:27 | RAD ---
CLINICAL HISTORY: Breast cancer COMPARISON: No prior study is available for comparison. TECHNIQUE: Radiopharmaceutical Dose: 25.6 mCi Tc99m MDP intravenous Approximately 2-4 hours after the administration of tracer, the patient was instructed to void and whole body images were obtained in the anterior and posterior projections. FINDINGS: Physiologic activity is seen within the skeletal structures and renal collecting systems. Focus of uptake within the left mandible favored to be represent dental disease. No other suspicious focus of increased radiotracer uptake. IMPRESSION: 1. Small focus of radiotracer uptake within the left mandible is favored to be from dental disease otherwise no focus of suspicious increased radiotracer uptake Radiation Dosimetry: The radiopharmaceutical used for this exam delivers approximately 0.21 mSv/mCi (21 mRem/mCi) Source: RADIATION DOSE ESTIMATES TO ADULTS AND CHILDREN, [place]; Effective dose RADAR Electronically signed by: Xavi May MD (05/06/2019 11:24 AM) [facility]
--- NOTE | 2019-05-06 11:27 | RAD ---
CLINICAL HISTORY: Breast cancer COMPARISON: No prior study is available for comparison. TECHNIQUE: Radiopharmaceutical Dose: 25.6 mCi Tc99m MDP intravenous Approximately 2-4 hours after the administration of tracer, the patient was instructed to void and whole body images were obtained in the anterior and posterior projections. FINDINGS: Physiologic activity is seen within the skeletal structures and renal collecting systems. Focus of uptake within the left mandible favored to be represent dental disease. No other suspicious focus of increased radiotracer uptake. IMPRESSION: 1. Small focus of radiotracer uptake within the left mandible is favored to be from dental disease otherwise no focus of suspicious increased radiotracer uptake Radiation Dosimetry: The radiopharmaceutical used for this exam delivers approximately 0.21 mSv/mCi (21 mRem/mCi) Source: RADIATION DOSE ESTIMATES TO ADULTS AND CHILDREN, [place]; Effective dose RADAR Electronically signed by: Xavi May MD (05/06/2019 11:24 AM) [facility]
== END | disposition home or self-care (01) ==
LOC: NM 07:34
PROVIDERS: ATTEND Internal Medicine Hematology & Oncology
DX: K80.20 Calculus of gallbladder without cholecystitis without obstruction (principal); K04.99 Other diseases of pulp and periapical tissues; Z17.1 Estrogen receptor negative status [ER-]; Z85.3 Personal history of malignant neoplasm of breast
CPT/HCPCS: 71260; 74177; 78306; A9503; Q9967

== ENCOUNTER → 2019-05-27 | Outpatient (CLI) | payer OTHER ==
[~2019-05-27] MED LIST changes: -CONTRAST GIVEN. MC PRN; -IOHEXOL 240 MG/ML 50ML VIAL. PO ONE; -IOHEXOL 300 MG/ML 100ML VIAL. IV ONE
--- NOTE | 2019-05-27 16:44 | RAD ---
EXAM: Ultrasound left chest wall DATE: 05/27/2019 4:28 PM INDICATION: Left chest wall pain, history of breast cancer COMPARISON: No Prior Technique: Grayscale and color Doppler sonographic evaluation was performed in the region of the left chest wall at the site of pain/palpable abnormality. FINDINGS/ IMPRESSION: 1. No discrete soft tissue mass is identified. 2. Normal appearing subcutaneous tissues and subjacent musculature is identified. Electronically signed by: Xavi May MD (05/27/2019 4:42 PM) [facility]
== END | disposition home or self-care (01) ==
LOC: US 16:07
PROVIDERS: ATTEND Internal Medicine Hematology & Oncology
DX: R07.89 Other chest pain (principal); Z85.3 Personal history of malignant neoplasm of breast
CPT/HCPCS: 76604

== ENCOUNTER 2020-11-28 12:38 | Emergency (ER) | payer MEDICARE, OTHER ==
[~2020-11-28 12:38] MED LIST changes: -ONDA8TAB14 PO; +ONDA8TAB17 PO
[2020-11-28] MEDS ORDERED: KETOROLAC 60 MG/2 ML VIAL. ONE (15:42)
[2020-11-28] MEDS ORDERED: KETOROLAC 60 MG/2 ML VIAL. INJ ONE (16:15)
--- NOTE | 2020-11-28 16:48 | PHYS DOC ---
Past Medical History Past Medical History: Cancer, Depression, Other Additional Past Medical Histor: breast cancer- chemotherapy, ovarian cyst, cervical cancer, Past Surgical History: , Other Additional Past Surgical Histo: bilat mastectomy Smoking Status: Current Some Day Smoker Alcohol Use: None Drug Use: None General Adult HPI: HPI: Patient is a 35 year old female presents to the emergency department with complaints of dental pain for the past 3 days. Patient states that the gums along both sides of her lower teeth hurt along with dental pain of all of her molars on the lower side. Patient states that she called to make an appointment to see her dentist today however they could not get her in. Patient states that she will make an appointment to see them later this week at [facility]. Patient denies allergies to medications. States she takes fluoxetine for depression, gabapentin for nerve pains, states that she had breast cancer and finished her chemotherapy 7 months ago. Patient states she took Tylenol and Advil at home for the pain and it has not been working, patient rates her pain a 10/10 on a 1-10 pain scale. Patient denies any other physical complaints or physical concerns. Review of Systems: Review of Systems: 14 body systems of review of systems have been reviewed. See HPI for pertinent positives and negative responses, otherwise all other systems are negative, nonpertinent or noncontributory. Heart Score: Risk Factors: Risk Factors: DM, Current or recent (<one month) smoker, HTN, HLP, family history of CAD, obesity. Risk Scores: Score 0 - 3: 2.5% MACE over next 6 weeks - Discharge Home Score 4 - 6: 20.3% MACE over next 6 weeks - Admit for Clinical Observation Score 7 - 10: 72.7% MACE over next 6 weeks - Early Invasive Strategies Current Medications: Current Medications Medications (Trade) Dose Ordered Sig/Thaddeus Start Time Stop Time Status Last Admin Dose Admin Ketorolac Tromethamine (Toradol Im) 60 mg 1X ONCE 11/28/20 16:15 11/28/20 16:16 DC Allergies: Allergies: Allergies Coded Allergies Type Severity Reaction Last Updated Verified No Known Drug Allergies 11/03/15 No Physical Exam: PE: Constitutional: Well developed, well nourished, no acute distress, non-toxic appearance. HENT: Normocephalic, atraumatic, bilateral external ears normal, oropharynx moist, no oral exudates, nose normal. Marked dental caries, gingivitis, multiple broken teeth. No dental abscess nor drainage appreciated. Eyes: PERRLA, EOMI, conjunctiva normal, no discharge. Neck: Normal range of motion, no tenderness, supple, no stridor. Cardiovascular:Heart rate regular rhythm, no murmur Lungs & Thorax: Bilateral breath sounds clear to auscultation Abdomen: Bowel sounds normal, soft, no tenderness, no masses, no pulsatile masses. Skin: Warm, dry, no erythema, no rash. Back: No tenderness, no CVA tenderness. Extremities: No tenderness, no cyanosis, no clubbing, ROM intact, no edema. Neurologic: Alert and oriented X 3, normal motor function, normal sensory function, no focal deficits noted. Psychologic: Affect normal, judgement normal, mood normal. EKG: EKG: [] Radiology/Procedures: Radiology/Procedures: [] Course & Med Decision Making: Course & Med Decision Making Pertinent Labs and Imaging studies reviewed. (See chart for details) 35-year-old female, vital signs reviewed, presents to the emergency department for dental pain. Physical examination showed marked dental caries with various stages of tooth decay. There were no dental abscess, no drainage, no deep tissue infection concerns, no loss of sensation to the face or tongue. Patient was seen during downtime, prescriptions were handwritten and given to patient, will treat with Peridex mouthwash swish and spit, 600 mg ibuprofen, 875 Augmentin twice daily x10 days, 12 each Range 5/325 mg. Patient states she will follow-up with her primary care dentist at [facility] dental office this week. Patient was discharged home without incident, gave verbal understanding of home care instructions, prescription medication use, return to ER precautions or concerns, follow-up with dentist. Dennis Disclaimer: Dennis Disclaimer: This electronic medical record was generated, in whole or in part, using a voice recognition dictation system. Departure Departure Impression: Primary Impression: Dentalgia Additional Impressions: Gingivitis Dental caries Disposition: 01 DC HOME SELF CARE/HOMELESS Condition: GOOD Referrals: ALTHEA BELTRE DO (PCP) Patient Instructions: Dental Caries Additional Instructions: Please take prescriptions as directed, follow-up with your dentist this week, return to the emergency department for worsening symptoms or other concerns. EMERGENCY DEPARTMENT GENERAL DISCHARGE INSTRUCTIONS Thank you for coming to [facility] Emergency Department (ED) today and trusting us with you care. We trust that you had a positive experience in our Emergency Department. If you wish to speak to the department management, you may call the Director at [phone]. YOUR FOLLOW UP INSTRUCTIONS ARE FOLLOWS: 1. Do you have a private Doctor? If you do not have a private doctor, please ask for a resource list of physicians or clinics that may be able to assist you with follow up care. 2. The Emergency Physicain has interpreted your x-rays. The X-Ray specialist will also review them. If there is a change in the findings, you will be notified in 48 hours when at all possible. 3. A lab test or culture has been done, your results will be reviewed and you will be notified if you need a change in treatment. ADDITIONAL INSTRUCTIONS AND INFORMATION: 1. Your care today has been supervised by a physician who is specially trained in emergency care. Many problems require more than one evaluation for a complete diagnosis and treatment. We recommend that you schedule your follow up appointment as recommended to ensure complete treatment of you illness or injury. If you are unable to obtain follow up care and continue to have a problem, or if your condition worsens, we recommend that you return to the ED. 2. We are not able to safely determine your condition over the phone nor are we able to give sound medical advice over the phone. For these safety reasons, if you call for medical advice we will ask you to come to the ED for further evaluation. 3. If you have any questions regarding these discharge instructions please call the ED at [phone]. SAFETY INFORMATION: In the interest of safety, wellness, and injury prevention; we encourage you to wear your sealbelt, if you smoke; quite smoking, and we encourage family to use a protective helmet for bicycling and other sporting events that present an increased risk for head injury. IF YOUR SYMPTOMS WORSEN OR NEW SYMPTOMS DEVELOP, OR YOU HAVE CONCERNS ABOUT YOUR CONDITION; OR IF YOUR CONDITION WORSENS WHILE YOU ARE WAITING FOR YOUR FOLLOW UP APPOINTMENT; EITHER CONTACT YOUR PRIMARY CARE DOCTOR, THE PHYSICIAN WHOSE NAME AND NUMBER YOU WERE GIVEN, OR RETURN TO THE ED IMMEDIATELY. YEMI GORDON APRN Nov 28, 2020 16:48
== END 2020-11-28 15:51 | disposition home or self-care (01) ==
LOC: ER 12:38
DX: K05.10 Chronic gingivitis, plaque induced (principal); K02.9 Dental caries, unspecified; K08.89 Other specified disorders of teeth and supporting structures; F32.9 Major depressive disorder, single episode, unspecified; Z85.3 Personal history of malignant neoplasm of breast; Z90.89 Acquired absence of other organs; Z98.890 Other specified postprocedural states; Z87.891 Personal history of nicotine dependence
CPT/HCPCS: 99283

== ENCOUNTER 2021-05-25 09:20 | Emergency (ER) | payer MEDICARE, OTHER | END 2021-05-25 09:21 | disposition left against medical advice (07) | LOC: ER 09:20 | DX: Z53.21 Procedure and treatment not carried out due to patient leaving prior to being seen by health care provider (principal) ==

== ENCOUNTER 2021-11-01 07:44 | Emergency (ER) | payer MEDICARE, OTHER ==
[~2021-11-01] VITALS: Ht 165.1 cm; Wt 77.5 kg
[~2021-11-01 07:44] MED LIST changes: -LEVO500T8 PO; +LEVO500T9 PO; +ONDA-85 PO; -ONDA8TAB17 PO
[2021-11-01] MEDS ORDERED: KETOROLAC 60 MG/2 ML VIAL. IM ONE (08:00)
[2021-11-01] MEDS ORDERED: PENICILLIN V K 250 MG TABLET. PO ONE (08:00)
[2021-11-01] MEDS ORDERED: KETOROLAC 60 MG/2 ML VIAL. ONE (08:01)
[2021-11-01] MEDS ORDERED: DICL50TA2 PO (08:04)
[2021-11-01] MEDS ORDERED: PENI500T PO (08:04)
--- NOTE | 2021-11-01 08:05 | PHYS DOC ---
Past Medical History Past Medical History: Cancer, Depression, Other Additional Past Medical Histor: breast cancer- chemotherapy, ovarian cyst, cervical cancer, Past Surgical History: , Other Additional Past Surgical Histo: bilat mastectomy Smoking Status: Current Some Day Smoker Alcohol Use: None Drug Use: None Adult General Chief Complaint Chief Complaint: DENTAL PROBLEM HPI HPI The patient is a 35-year-old female with a history of breast cancer treated to remission. She is otherwise healthy. She presents for evaluation of dental discomfort in association with multiple bilateral maxillary and mandibular fractured and necrotic teeth. She states she always has dental pain from these teeth but that the discomfort has been worse all over her mouth for a few days. No associated fevers, nausea or vomiting, trismus, pain or swelling to the floor of the mouth or elevation of the tongue, pain or difficulty swallowing, shortness of breath. Patient is alert and pleasantly and appropriately interactive and in no acute distress with appropriate vital signs upon initial evaluation here in the emergency department. Review of Systems Review of Systems A 12 point review of systems was completed and was negative except for noted in HPI above. Current Medications Current Medications Current Medications Medications (Trade) Dose Ordered Sig/Thaddeus Start Time Stop Time Status Last Admin Dose Admin Ketorolac Tromethamine (Toradol Im) 60 mg 1X ONCE 11/01/21 08:00 11/01/21 08:02 DC Penicillin V Potassium (Veetid) 500 mg 1X ONCE 11/01/21 08:00 11/01/21 08:02 DC Allergies Allergies Allergies Coded Allergies Type Severity Reaction Last Updated Verified No Known Drug Allergies 11/03/15 No Physical Exam Physical Exam 35-year-old female appearing nontoxic and in no acute distress. Head is normocephalic and atraumatic. Neck is supple and nontender. Oropharynx is moist. There are multiple fractured and necrotic teeth, primarily molars, to the left and right maxillary and mandibular dentition. No associated gingival erythema, gingival fluctuance, trismus, submental swelling, cervical lymphadenopathy, difficulty with secretions, change in voice. Patient is tolerating secretions normally and speaking comfortably in a normal tone of voice. No overlying facial swelling. Lungs are clear to auscultation at all stations. There is a normal S1 and S2 without rubs or gallops and capillary refill is appropriate, less than 2 seconds globally. Abdomen is soft, nontender and nondistended. Skin is warm and dry without cyanosis, clubbing or edema. Psychiatrically, the patient demonstrates appropriate mood and affect and is alert. EKG EKG [] Radiology/Procedures Radiology/Procedures [] Course & Med Decision Making Course & Med Decision Making Well-appearing 35-year-old female here with uncomplicated dental pain without red flags secondary to pervasive dental decay with multiple fractured and necrotic teeth all over her mouth. She states she has not had a dentist address these issues because of cost concerns. Sliding scale dental resources provided and patient is counseled that she will need to follow-up in the next 1 to 2 days with a dentist as otherwise she cannot expect symptoms to resolve. She understands and agrees. Will discharge with diclofenac anti-inflammatory course and a course of antibiotic. Patient understands that if she feels worse inste ad of better or develops other new symptoms of concern that she should return to the emergency department immediately for reevaluation. All questions were answered. Dragon Disclaimer Dragon Disclaimer This electronic medical record was generated, in whole or in part, using a voice recognition dictation system. Departure Departure Impression: Primary Impression: Dentalgia Additional Impression: Dental decay Disposition: 01 HOME / SELF CARE / HOMELESS Condition: IMPROVED Referrals: ALTHEA BELTRE DO (PCP) Patient Instructions: Dental Caries, Dental Pain Additional Instructions: Follow-up very closely with your dentist in the office in the next 1 to 2 days for a reevaluation of your symptoms and a discussion of next best steps in care. You may try the [facility] student dental clinic at the telephone number provided to you or you may go down the list of reduced fee clinics that we have given you to find a dentist who will see you and help you with your broken teeth. Take a 50 mg diclofenac anti-inflammatory pill every 8 hours as needed for discomfort. Take the penicillin antibiotic 4 times a day as prescribed for the next 10 days. Return to the emergency department right away for worsening symptoms of any kind or with any other new symptoms of concern. As we discussed at length, your teeth will not get better until you have them treated by a dentist. It is critically important that you follow-up with a dentist as above. Scripts Penicillin V Potassium (PENICILLIN V POTASSIUM) 500 Mg Tablet 1 TAB PO QID for 10 Days, #40 TAB Prov: FAHAD ENGLAND MD 11/01/21 Diclofenac Potassium (DICLOFENAC POTASSIUM) 50 Mg Tablet 50 MG PO TID PRN for pain/swelling, #30 TAB Prov: FAHAD ENGLAND MD 11/01/21 Problem Qualifiers FAHAD ENGLAND MD Nov 01, 2021 08:05
[2021-11-01 08:21] VITALS: BP 139/86
== END 2021-11-01 08:26 | disposition home or self-care (01) ==
LOC: ER 07:44
DX: K08.89 Other specified disorders of teeth and supporting structures (principal); K02.9 Dental caries, unspecified; F17.200 Nicotine dependence, unspecified, uncomplicated
CPT/HCPCS: 96372; 99283; J1885